=== PATIENT | female | born 1955 | race Caucasian/White ===

== ENCOUNTER 2025-03-24 12:59 | Emergency (ER) | payer MEDICARE ==
[2025-03-24 14:39] LABS: ALT (SGPT) 12 U/L (Less than 34); AST (SGOT) 36 U/L (11-34); Albumin 3.3 g/dL (3.1-4.5); Alkaline Phosphatase 81 U/L (40-110); Anion Gap 20 mmol/L (10-20); BUN (Urea Nitrogen) 10 mg/dL (9.8-20.1); Bilirubin, Total 0.5 mg/dL (0.3-1.2); Calc. Creatinine Clearance 0 mL/min (70-130); Calcium 9.2 mg/dL (7.8-10.44); Carbon Dioxide 25 mmol/L (23-31); Chloride 94 mmol/L (98-107); Globulin 3.5 g/dL (2.4-3.5); Glucose 114 mg/dL (80-115); Potassium 3.5 mmol/L (3.5-5.1); Sodium 135 mmol/L (136-145)
[2025-03-24 14:44] LABS: Hemoglobin 12.8 g/dL (12.0-16.0); Red Blood Cell (RBC) Count 4.42 mill/uL (4.20-5.40); White Blood Cell (WBC) Count 6.9 10x3/uL (4.8-10.8)
[2025-03-24 14:45] LABS: Hematocrit 36.6 % (36.0-47.0); Mean Corpuscular Hemoglobin 28.8 pg (27.0-31.0); Mean Corpuscular Volume 82.8 fl (78.0-98.0); Platelet Count 155 10x3/uL (130-400)
[2025-03-24 14:46] LABS: Platelet Adequacy Comment Appears Adequate
== END 2025-03-24 15:51 | disposition home or self-care (01) ==
LOC: NAV ERS 12:59
DX: J11.1 Influenza due to unidentified influenza virus with other respiratory manifestations (principal); E11.9 Type 2 diabetes mellitus without complications
CPT/HCPCS: 80053; 85025; J7030; 99284